=== PATIENT | female | born 1970 | race Caucasian/White ===

== ENCOUNTER 2017-01-24 04:22 | Emergency (ER) | payer SELFPAY ==
[~2017-01-24] VITALS: Ht 172.7 cm; Wt 78.0 kg
[~2017-01-24 04:22] MED LIST: LEVO50TA4 PO
[2017-01-24 04:24] VITALS: BP 126/80; PULSE 106; RESP 16; TEMP 97.8; O2SAT 100
[2017-01-24] MEDS ORDERED: LEVO50TA4 PO (05:20)
[2017-01-24] MEDS ORDERED: PERM5CRE11 TOPICAL (05:20)
[2017-01-24] MEDS ORDERED: methylPREDNISolone SOD SUCC 125 MG/2 ML VIAL IV PUSH ONE (05:30)
[2017-01-24] MEDS ORDERED: diphenhydrAMINE HCL 50 MG/ML VIAL IM ONE (05:30)
[2017-01-24] MEDS ORDERED: FAMOTIDINE 20 MG/2 ML VIAL IV PUSH ONE (05:30)
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
[2017-01-24 05:48] LABS: AUTOMATED NEUTROPHIL # 5.9 TH/MM3 (1.8-7.7); BASOPHIL % 0.3 % (0.0-2.0); EOSINOPHIL # 0.2 TH/MM3 (0-0.4); EOSINOPHIL % 2.1 % (0.0-4.0); HEMO FLAGS DIFF FINAL; LYMPH % 14.3 % (9.0-44.0); LYMPHOCYTE # 1.1 TH/MM3 (1.0-4.8); MEAN CELL VOLUME 59.1 FL (80.0-100.0); MEAN CORPUSCULAR HEMOGLOBIN 17.8 PG (27.0-34.0); MEAN CORPUSCULAR HGB CONC 30.1 % (32.0-36.0); MONO % 7.4 % (0.0-8.0); NEUT % 75.9 % (16.0-70.0); PLATELET COUNT 273 TH/MM3 (150-450); RED CELL DISTRIBUTION WIDTH 19.5 % (11.6-17.2); WHITE BLOOD COUNT 7.7 TH/MM3 (4.0-11.0)
[2017-01-24 06:06] LABS: BICARBONATE 24.3 MEQ/L (21.0-32.0); POTASSIUM 3.5 MEQ/L (3.5-5.1)
[2017-01-24] MEDS ORDERED: BENA25TA6 PO (06:21)
[2017-01-24] MEDS ORDERED: PRED-503 PO (06:21)
== END 2017-01-24 06:31 | disposition home or self-care (01) ==
LOC: NEPE 04:22 → NEPD 06:31
DX: T78.40XA Allergy, unspecified, initial encounter (principal); D64.9 Anemia, unspecified; R21 Rash and other nonspecific skin eruption; L29.9 Pruritus, unspecified; H93.93 Unspecified disorder of ear, bilateral; E03.9 Hypothyroidism, unspecified; X58.XXXA Exposure to other specified factors, initial encounter
CPT/HCPCS: 80048; 85025; 96372; 96374; 96375; 99284; J1200; J2930

== ENCOUNTER 2017-07-04 19:37 | Emergency (ER) | payer BC, OTHER ==
[~2017-07-04] VITALS: Ht 167.6 cm; Wt 90.6 kg
[~2017-07-04 19:37] MED LIST changes: +BENA25TA6 PO; +PERM5CRE11 TOPICAL; +PRED-503 PO
[2017-07-04 19:44] VITALS: BP 127/86; PULSE 92; RESP 18; TEMP 98; O2SAT 99
--- NOTE | 2017-07-04 20:11 | PD ---
HPI Chief Complaint: Pain: Acute or Chronic Time Seen by Provider: 20:02 Travel History International Travel<30 days: No Contact w/Intl Traveler<30days: No Traveled to known affect area: No History of Present Illness HPI 46-year-old female here for evaluation of right shoulder pain. The patient reports that she has had pain in her right shoulder for the last month, worse today. She denies specific trauma or injury to the shoulder. States that the pain is sharp/pressure-like, moderate to severe, worse with movement and palpation, radiates to her right neck. No paresthesias or motor deficits. No fevers. She has taken Tylenol without relief of pain. [facility] Past Medical History Immunizations Current: Yes Thyroid Disease: Yes Tetanus Vaccination: Unknown Influenza Vaccination: No ?: Not LMP: less then 1 mo ago Social History Alcohol Use: Yes Tobacco Use: No Substance Use: No Allergies-Medications (Allergen,Severity, Reaction): Coded Allergies: aspirin (Verified Allergy, Severe, Swelling, 07/04/17) Reported Meds & Prescriptions Reported Meds & Active Scripts Active No Active Prescriptions or Reported Medications Review of Systems Except as stated in HPI: all other systems reviewed are Neg Physical Exam Narrative GENERAL: Well-developed, well-nourished, comfortable, no apparent distress. SKIN: Focused skin assessment warm/dry. No rash. HEAD: Atraumatic. Normocephalic. EYES: Pupils equal and round. No scleral icterus. No injection or drainage. ENT: Mucous membranes pink and moist. NECK: Trachea midline. No JVD. No midline cervical spine step-off or tenderness. Mild to moderate right lateral neck tenderness without swelling, masses, or induration. CARDIOVASCULAR: Regular rate and rhythm. Bilateral distal radial pulses are brisk and equal. RESPIRATORY: No accessory muscle use. Clear to auscultation. Breath sounds equal bilaterally. MUSCULOSKELETAL: Right shoulder without obvious deformity without overlying skin changes, without warmth or erythema, with moderate diffuse tenderness, with normal range of motion, however this causes pain when the patient reaches 90 of abduction. NEUROLOGICAL: Awake and alert. No obvious cranial nerve deficits. Motor grossly within normal limits. Normal speech. Normal sensation in bilateral upper extremities. PSYCHIATRIC: Appropriate mood and affect; insight and judgment normal. Data Data Last Documented VS Vital Signs Date Time Temp Pulse Resp B/P (MAP) Pulse Ox O2 Delivery O2 Flow Rate FiO2 07/04/17 19:44 98.0 92 18 127/86 (100) 99 Orders Orders Shoulder, Complete (>2vws) (07/04/17 ) Ketorolac Inj (Toradol Inj) (07/04/17 20:15) Cyclobenzaprine (Flexeril) (07/04/17 21:00) MDM Medical Decision Making Medical Screen Exam Complete: Yes Emergency Medical Condition: Yes Differential Diagnosis Rotator cuff injury, calcific tendinitis, nerve irritation, arthritis, septic arthritis unlikely Narrative Course Vital signs are within normal limits. Right shoulder x-ray read as normal exam. Patient was made aware of x-ray findings per she is resting comfortably. This is been going on for a month. There are no signs or symptoms of septic arthritis. Plan is to discharge her home with naproxen and muscle relaxant, and have her follow-up with her primary care physician as well as an orthopedist this week. She was advised on when to return to the emergency department. She verbalizes understanding and agreement with plan. Diagnosis Primary Impression: Right shoulder pain Qualified Codes: M25.511 - Pain in right shoulder Referrals: Hilario Ortega MD 3 days Orthopedist Primary Care Physician 3 days Additional Instructions: Follow-up with your primary care physician this week. Follow-up with orthopedist Dr. Ortega or an orthopedist of your choice this week. Return to the emergency department for worsening symptoms or any other concerns. Scripts Naproxen (Naproxen) 500 Mg Tab 500 MG PO BID for 14 Days, #28 TAB 0 Refills Prov: Dave Barry MD 07/04/17 Cyclobenzaprine (Flexeril) 10 Mg Tab 10 MG PO BID for Muscle Spasm, #15 TAB 0 Refills Prov: Dave Barry MD 07/04/17 Disposition: 01 DISCHARGE HOME Condition: Stable Dave Barry MD Jul 04, 2017 20:11
[2017-07-04] MEDS ORDERED: KETOROLAC TROMETHAMINE 60 MG/2 ML (IM) VIAL IM ONE (20:15)
--- NOTE | 2017-07-04 20:38 | RADRPT ---
EXAM DATE/TIME: 07/04/2017 20:10 [facility] COMPARISON: No previous studies available for comparison. INDICATIONS : Right shoulder pain, no known trauma. MEDICAL HISTORY : None. SURGICAL HISTORY : None. ENCOUNTER: Initial ACUITY: 1 month PAIN SCORE: 8/10 LOCATION: Right shoulder FINDINGS: Multiple view examination of the right shoulder demonstrates no evidence of fracture or dislocation. The glenohumeral and acromioclavicular joints are maintained. There is normal range of motion betwe en internal and external rotation. Bony mineralization is normal. CONCLUSION: Normal examination for a patient of this age. Cuco Martinez MD on July 04, 2017 at 20:35 Board Certified Radiologist. This report was verified electronically.
[2017-07-04] MEDS ORDERED: CYCL10TA PO (20:49)
[2017-07-04] MEDS ORDERED: NAPR500T2 PO (20:49)
[2017-07-04] MEDS ORDERED: CYCLOBENZAPRINE HCL 10 MG TAB PO ONE (21:00)
== END 2017-07-04 21:06 | disposition home or self-care (01) ==
LOC: PHEFT 19:37
DX: M25.511 Pain in right shoulder (principal)
CPT/HCPCS: 73030; 96372; 99284; J1885

== ENCOUNTER 2017-08-23 20:39 | Observation (INO) | payer SELFPAY ==
[~2017-08-23] VITALS: Ht 167.6 cm; Wt 93.2 kg
[~2017-08-23 20:39] MED LIST changes: -BENA25TA6 PO; +CYCL10TA PO; -LEVO50TA4 PO; +NAPR500T2 PO; -PERM5CRE11 TOPICAL; -PRED-503 PO
[2017-08-23 21:16] VITALS: BP 135/83; PULSE 88; RESP 20; TEMP 98.2; O2SAT 99
[2017-08-23] MEDS ORDERED: LEVO50TA4 PO (21:20)
[2017-08-23] MEDS ORDERED: SODIUM CHLOR 0.9% 1000 ML INJ 1,000 ML IV SCH (22:04)
--- NOTE | 2017-08-23 22:08 | PD ---
HPI Chief Complaint: Abdominal Pain Time Seen by Provider: 21:58 Travel History International Travel<30 days: No Contact w/Intl Traveler<30days: No Traveled to known affect area: No History of Present Illness HPI The patient is a 47-year-old female that complains of pain in the right lower quadrant since 11 AM today. She has nausea without vomiting. She denies any fever. She had slight loose stools but she states she did not have diarrhea. Her appetite is decreased and her last meal was at 11 AM today. She has never had any abdominal surgeries and still has her appendix and gallbladder. The patient states one week ago when she was on her period she stood up and almost fainted. [facility] Past Medical History Immunizations Current: Yes Thyroid Disease: Yes Tetanus Vaccination: < 5 Years Influenza Vaccination: No ?: Not Social History Alcohol Use: Yes (social ) Tobacco Use: No Substance Use: No Allergies-Medications (Allergen,Severity, Reaction): Coded Allergies: aspirin (Verified Allergy, Severe, Swelling, 08/23/17) Reported Meds & Prescriptions Reported Meds & Active Scripts Active Reported Levothyroxine (Levothyroxine Sodium) 50 Mcg Tab 50 Mcg PO DAILY Review of Systems Except as stated in HPI: all other systems reviewed are Neg Physical Exam Narrative GENERAL: The patient is alert, oriented 3, anemic appearing in moderate apparent distress with her right lower quadrant discomfort. She is slightly obese. Her vital signs are normal. SKIN: Focused skin assessment warm/dry. HEAD: Atraumatic. Normocephalic. EYES: Pupils equal and round. No scleral icterus. No injection or drainage. ENT: No nasal bleeding or discharge. Mucous membranes pink and moist. NECK: Trachea midline. No JVD. CARDIOVASCULAR: Regular rate and rhythm. No murmur appreciated. RESPIRATORY: No accessory muscle use. Clear to auscultation. Breath sounds equal bilaterally. GASTROINTESTINAL: Abdomen soft, with tenderness to direct palpation in the right lower quadrant, nondistended. Hepatic and splenic margins not palpable. No guarding or rebound. Gaines sign is negative. The uterus is palpable and is enlarged. The uterus is tender and the right lower quadrant shows tenderness which may be appendiceal tenderness or over and tenderness. MUSCULOSKELETAL: No obvious deformities. No clubbing. No cyanosis. No edema. NEUROLOGICAL: Awake and alert. No obvious cranial nerve deficits. Motor grossly within normal limits. Normal speech. PSYCHIATRIC: Appropriate mood and affect; insight and judgment normal. Data Data Last Documented VS Vital Signs Date Time Temp Pulse Resp B/P (MAP) Pulse Ox O2 Delivery O2 Flow Rate FiO2 08/23/17 22:37 98.3 95 18 142/84 (103) 100 Room Air Orders Orders Beta Hcg (Quant/Titer) (08/23/17 22:04) Complete Blood Count With Diff (08/23/17 22:04) Comprehensive Metabolic Panel (08/23/17 22:04) Lipase (08/23/17 22:04) Urinalysis - C+S If Indicated (08/23/17 22:04) Ct Abd/Pel W Iv Contrast(Rout) (08/23/17 22:04) Iv Access Insert/Monitor (08/23/17 22:04) Ecg Monitoring (08/23/17 22:04) Oximetry (08/23/17 22:04) Morphine Inj (Morphine Inj) (08/23/17 22:15) Ondansetron Inj (Zofran Inj) (08/23/17 22:15) Sodium Chlor 0.9% 1000 Ml Inj (Ns 1000 M (08/23/17 22:04) Sodium Chloride 0.9% Flush (Ns Flush) (08/23/17 22:15) Iohexol 350 Inj (Omnipaque 350 Inj) (08/23/17 22:20) Labs Laboratory Tests Test 08/23/17 22:10 White Blood Count 8.8 TH/MM3 Red Blood Count 4.12 MIL/MM3 Hemoglobin 7.5 GM/DL Hematocrit 25.0 % Mean Corpuscular Volume 60.5 FL Mean Corpuscular Hemoglobin 18.3 PG Mean Corpuscular Hemoglobin Concent 30.1 % Red Cell Distribution Width 16.4 % Platelet Count 357 TH/MM3 Mean Platelet Volume 7.9 FL Neutrophils (%) (Auto) 81.1 % Lymphocytes (%) (Auto) 12.1 % Monocytes (%) (Auto) 5.3 % Eosinophils (%) (Auto) 1.2 % Basophils (%) (Auto) 0.3 % Neutrophils # (Auto) 7.1 TH/MM3 Lymphocytes # (Auto) 1.1 TH/MM3 Monocytes # (Auto) 0.5 TH/MM3 Eosinophils # (Auto) 0.1 TH/MM3 Basophils # (Auto) 0.0 TH/MM3 CBC Comment AUTO DIFF Differential Comment AUTO DIFF CONFIRMED Platelet Estimate NORMAL Platelet Morphology Comment NORMAL Tear Drop Cells 1+ Ovalocytes 2+ Urine Color YELLOW Urine Turbidity CLEAR Urine pH 5.5 Urine Specific [place] 1.021 Urine Protein NEG mg/dL Urine Glucose (UA) NEG mg/dL Urine Ketones NEG mg/dL Urine Occult Blood NEG Urine Nitrite NEG Urine Bilirubin NEG Urine Leukocyte Esterase NEG Urine WBC 0-2 /hpf Urine Squamous Epithelial Cells 0-5 /hpf Microscopic Urinalysis Comment CULT NOT INDICATED Blood Urea Nitrogen 13 MG/DL Creatinine 0.61 MG/DL Random Glucose 99 MG/DL Total Protein 7.5 GM/DL Albumin 3.4 GM/DL Calcium Level 8.6 MG/DL Alkaline Phosphatase 83 U/L Aspartate Amino Transf (AST/SGOT) 19 U/L Alanine Aminotransferase (ALT/SGPT) 33 U/L Total Bilirubin 0.6 MG/DL Sodium Level 136 MEQ/L Potassium Level 3.9 MEQ/L Chloride Level 103 MEQ/L Carbon Dioxide Level 25.1 MEQ/L Anion Gap 8 MEQ/L Estimat Glomerular Filtration Rate 106 ML/MIN Lipase 146 U/L Human Chorionic Gonadotropin, Quant LESS THAN 1 MIU/ML MDM Medical Decision Making Medical Screen Exam Complete: Yes Emergency Medical Condition: Yes Medical Record Reviewed: Yes Interpretation(s) The CT abdomen/pelvis with IV contrast shows markedly enlarged fibroid uterus, no evidence of acute appendicitis, prominent ovaries with multiple cysts bilaterally and mild hepatosplenomegaly. The CBC shows a hemoglobin of 7.5 and hematocrit of 25 but is otherwise unremarkable. The urinalysis is normal. The complete metabolic profile is normal. The beta-hCG is less than 1 on the lipase is normal. Differential Diagnosis Anemia, electrolyte disorder, acute appendicitis, fibroid uterus, uterine bleeding, colitis Narrative Course The patient has symptomatic anemia. This appears to be from blood loss from uterine bleeding. The uterus is markedly enlarged and appears to be a fibroid uterus. Plan: The patient will be 23 hour observation to the [facility], I discussed the patient with Dr. Oliveira. She will get 2 units of packed cells. Physician Communication Physician Communication I discussed the patient with Dr. Oliveira. The patient will be admitted to her for 23 hour observation. Diagnosis Primary Impression: Symptomatic anemia Additional Impressions: Uterine bleeding, dysfunctional Fibroid uterus Enlarged uterus Admitting Information Admitting Physician Requests: Observation Chico Coles MD Aug 23, 2017 22:08
[2017-08-23] MEDS ORDERED: ONDANSETRON HCL 4 MG/2 ML VIAL IVP ONE (22:15)
[2017-08-23] MEDS ORDERED: SODIUM CHLORIDE 0.9% FLUSH 10 ML FLUSH IV FLUSH PRN (22:15)
[2017-08-23] MEDS ORDERED: MORPHINE SULFATE 4 MG/ML INJ IV PUSH ONE (22:15)
[2017-08-23 22:18] LABS: AUTOMATED NEUTROPHIL # 7.1 TH/MM3 (1.8-7.7); BASOPHIL % 0.3 % (0.0-2.0); EOSINOPHIL # 0.1 TH/MM3 (0-0.4); EOSINOPHIL % 1.2 % (0.0-4.0); HEMOGLOBIN 7.5 GM/DL (11.6-15.3); LYMPH % 12.1 % (9.0-44.0); LYMPHOCYTE # 1.1 TH/MM3 (1.0-4.8); MEAN CELL VOLUME 60.5 FL (80.0-100.0); MEAN CORPUSCULAR HEMOGLOBIN 18.3 PG (27.0-34.0); MEAN CORPUSCULAR HGB CONC 30.1 % (32.0-36.0); MEAN PLATELET VOLUME 7.9 FL (7.0-11.0); MONO % 5.3 % (0.0-8.0); MONOCYTE # 0.5 TH/MM3 (0-0.9); NEUT % 81.1 % (16.0-70.0); PLATELET COUNT 357 TH/MM3 (150-450); RED BLOOD COUNT 4.12 MIL/MM3 (4.00-5.30); RED CELL DISTRIBUTION WIDTH 16.4 % (11.6-17.2); WHITE BLOOD COUNT 8.8 TH/MM3 (4.0-11.0)
[2017-08-23 22:20] LABS: BILIRUBIN, URINE NEG (NEG); BLOOD, URINE NEG (NEG); GLUCOSE,URINE NEG (NEG); KETONE, URINE NEG (NEG); NITRITE,URINE NEG (NEG); PH, URINE 5.5 (5.0-8.5); URINE LEUKOCYTE ESTERASE NEG (NEG)
[2017-08-23] MEDS ORDERED: IOHEXOL 350 MG/ML 10 ML VIAL (for RAD DIAG) IVCONTRAST ONE (22:20)
[2017-08-23 22:25] LABS: SQUAMOUS EPITHELIAL CELL URINE 0-5 /hpf (0-5); URINE COLOR YELLOW (YELLW/STRAW); WBC, URINE 0-2 /hpf (0-5)
[2017-08-23 22:27] LABS: CHLORIDE 103 MEQ/L (98-107); SODIUM (NA) 136 MEQ/L (136-145)
[2017-08-23 22:30] LABS: CALCIUM 8.6 MG/DL (8.5-10.1)
[2017-08-23 22:31] LABS: ALBUMIN 3.4 GM/DL (3.4-5.0); BICARBONATE 25.1 MEQ/L (21.0-32.0); BLOOD UREA NITROGEN 13 MG/DL (7-18); GLUCOSE,RANDOM 99 MG/DL (74-106)
[2017-08-23 22:34] LABS: ALT (GPT) 33 U/L (10-53); AST (GOT) 19 U/L (15-37); CREATININE 0.61 MG/DL (0.50-1.00); GLOMERULAR FILTRATION RATE 106 ML/MIN (>89)
[2017-08-23 22:35] LABS: TOTAL BILIRUBIN ADULT 0.6 MG/DL (0.2-1.0); TOTAL PROTEIN 7.5 GM/DL (6.4-8.2)
[2017-08-23 22:36] VITALS: O2SAT 100
[2017-08-23 22:37] VITALS: BP 142/84; PULSE 95; RESP 18; TEMP 98.3; O2SAT 100
[2017-08-23 22:37] LABS: ALKALINE PHOSPHATASE 83 U/L (45-117)
[2017-08-23 22:38] LABS: OVALOCYTES 2+ (NORMAL); TEARDROP RBCS 1+ (NORMAL)
--- NOTE | 2017-08-23 23:10 | RADRPT ---
EXAM DATE/TIME: 08/23/2017 22:20 [facility] COMPARISON: No previous studies available for comparison. INDICATIONS : Right lower quadrant pain for 6 hours IV CONTRAST: 96 cc Omnipaque 350 (iohexol) IV ORAL CONTRAST: No oral contrast ingested. RADIATION DOSE: 16.72 CTDIvol (mGy) MEDICAL HISTORY : Hypothyroidism. SURGICAL HISTORY : None. ENCOUNTER: Initial ACUITY: 1 day PAIN SCALE: 8/10 LOCATION: Right lower quadrant TECHNIQUE: Volumetric scanning of the abdomen and pelvis was performed. Using automated exposure control and adjustment of the mA and/or kV according to patient size, radiation dose was kept as low as reasonably achievable to obtain optimal diagnostic quality images. DICOM format image data is av ailable electronically for review and comparison. FINDINGS: LOWER LUNGS: The visualized lower lungs are clear. LIVER: Mild hepatomegaly is noted. Homogeneous density without lesion. There is no dilation of t he biliary tree. No calcified gallstones. SPLEEN: Mild splenomegaly is noted. PANCREAS: Within normal limits. KIDNEYS: Normal in size and shape. There is no mass, stone or hydronephrosis. ADRENAL GLANDS: Within normal limits. VASCULAR: There is no aortic aneurysm. BOWEL/MESENTERY: The stomach, small bowel, and colon demonstrate no acute abnormality. There is no free intraperitoneal air or fluid. The appendix is normal. ABDOMINAL WALL: Within normal limits. RETROPERITONEUM: There is no lymphadenopathy. BLADDER: No wall thickening or mass. REPRODUCTIVE: The uterus is markedly enlarged and contains multiple fibroids. The ovaries are mil dly prominent and contain cysts bilaterally. INGUINAL: There is no lymphadenopathy or hernia. MUSCULOSKELETAL: Within normal limits for patient age. CONCLUSION: 1. Markedly enlarged fibroid uterus. 2. No CT evidence of acute appendicitis. 3. Prominent ovaries with multiple cysts bilaterally. 4. Mild hepatosplenomegaly. Claus Johnson MD on August 23, 2017 at 23:04 Board Certified Radiologist. This report was verified electronically.
[2017-08-23 23:30] VITALS: BP 138/88; PULSE 84; RESP 18; TEMP 98.4; O2SAT 100
[2017-08-23] MEDS ORDERED: LACTULOSE SYRUP 20 GM/30 ML CUP PO PRN (23:45)
[2017-08-23] MEDS ORDERED: MAGNESIUM HYDROXIDE SUSP 30 ML CUP PO PRN (23:45)
[2017-08-23] MEDS ORDERED: FUROSEMIDE 20 MG/2 ML VIAL IV PUSH ONE (23:45)
[2017-08-23] MEDS ORDERED: SODIUM CHLOR 0.9% 250 ML INJ 250 ML IV ONE ×2 (23:45)
[2017-08-23] MEDS ORDERED: ONDANSETRON HCL 4 MG/2 ML VIAL IVP PRN (23:45)
[2017-08-23] MEDS ORDERED: NALOXONE HCL 0.4 MG/ML AMP IV PUSH PRN (23:45)
[2017-08-23] MEDS ORDERED: ACETAMINOPHEN 325 MG TAB PO PRN (23:45)
[2017-08-23] MEDS ORDERED: SENNOSIDES 8.6 MG TAB PO PRN (23:45)
[2017-08-23] MEDS ORDERED: BISACODYL 10 MG SUPP RECTAL PRN (23:45)
[2017-08-24] VITALS (7 sets, daily range): BP systolic 107–129; BP diastolic 70–88; PULSE 79–90; RESP 14–20; TEMP 97.7–98.7; O2SAT 94–98
[2017-08-24] MEDS ORDERED: HYDROmorphone HCL PF 2 MG/ML VIAL IV PUSH ONE (02:00)
[2017-08-24] MEDS: SODIUM CHLORIDE 0.9% FLUSH 10 ML FLUSH IV FLUSH PRN ×2 (02:08→06:12)
[2017-08-24] MEDS ORDERED: ACETAMINOPHEN/HYDROcodone 325 MG/5 MG TAB PO PRN (08:45)
[2017-08-24] MEDS ORDERED: DOCUSATE SODIUM 50 MG/SENNA 8.6 MG TAB PO SCH (09:00)
[2017-08-24] MEDS ORDERED: PNEUMOCOCCAL POLYVALENT INJ 25 MCG/0.5 ML SYR IM ONE (09:00)
[2017-08-24] MEDS ORDERED: INFLUENZA VIRUS VACCINE (QUADRIVALENT) 0.5 ML SYR IM ONE (09:00)
[2017-08-24] MEDS ORDERED: SODIUM CHLORIDE 0.9% FLUSH 10 ML FLUSH IV FLUSH SCH (09:00)
[2017-08-24 10:13] LABS: AUTOMATED NEUTROPHIL # 6.4 TH/MM3 (1.8-7.7); BASOPHIL % 0.3 % (0.0-2.0); EOSINOPHIL # 0.1 TH/MM3 (0-0.4); EOSINOPHIL % 0.9 % (0.0-4.0); HEMOGLOBIN 9.1 GM/DL (11.6-15.3); LYMPH % 8.5 % (9.0-44.0); LYMPHOCYTE # 0.7 TH/MM3 (1.0-4.8); MEAN CELL VOLUME 65.6 FL (80.0-100.0); MEAN CORPUSCULAR HEMOGLOBIN 21.3 PG (27.0-34.0); MEAN CORPUSCULAR HGB CONC 32.5 % (32.0-36.0); MEAN PLATELET VOLUME 7.7 FL (7.0-11.0); MONO % 7.1 % (0.0-8.0); MONOCYTE # 0.6 TH/MM3 (0-0.9); NEUT % 83.2 % (16.0-70.0); PLATELET COUNT 304 TH/MM3 (150-450); RED BLOOD COUNT 4.26 MIL/MM3 (4.00-5.30); WHITE BLOOD COUNT 7.8 TH/MM3 (4.0-11.0)
[2017-08-24 10:18] LABS: CHLORIDE 102 MEQ/L (98-107); SODIUM (NA) 136 MEQ/L (136-145)
[2017-08-24 10:20] LABS: RETIC # 105.6 MIL/L (20.0-150.0); RETIC % 2.7 % (0.4-3.0)
[2017-08-24 10:23] LABS: ALBUMIN 3.2 GM/DL (3.4-5.0); BICARBONATE 26.7 MEQ/L (21.0-32.0); BLOOD UREA NITROGEN 11 MG/DL (7-18); CALCIUM 8.1 MG/DL (8.5-10.1); GLUCOSE,RANDOM 102 MG/DL (74-106)
[2017-08-24 10:26] LABS: ALT (GPT) 30 U/L (10-53); AST (GOT) 17 U/L (15-37); CREATININE 0.62 MG/DL (0.50-1.00); GLOMERULAR FILTRATION RATE 104 ML/MIN (>89)
[2017-08-24 10:28] LABS: TOTAL BILIRUBIN ADULT 1.7 MG/DL (0.2-1.0); TOTAL PROTEIN 7.1 GM/DL (6.4-8.2)
[2017-08-24 10:29] LABS: ALKALINE PHOSPHATASE 80 U/L (45-117)
[2017-08-24 10:37] LABS: % SATURATION IRON PROFILE 2.5 % (20-50); IRON (FE) 15 MCG/DL (50-170); TOTAL IRON BINDING CAPACITY 612 MCG/DL (250-450)
[2017-08-24] MEDS ORDERED: HYDR-3516 PO (10:53)
[2017-08-24] MEDS ORDERED: FERR325T18 PO (10:53)
--- NOTE | 2017-08-24 10:54 | HHI.DCPOC ---
Discharge Care Plan Diagnosis: (1) Symptomatic anemia (2) Fibroid uterus Goals to Promote Your Health * To prevent worsening of your condition and complications * To maintain your health at the optimal level Directions to Meet Your Goals Take your medications as prescribed Follow your dietary instruction Follow activity as directed Keep your appointments as scheduled Take your immunizations and boosters as scheduled If your symptoms worsen call your PCP, if no PCP go to Urgent Care Center or Emergency Room Smoking is Dangerous to Your Health. Avoid second hand smoke Call the 24-hour hour crisis hotline for domestic abuse at [facility] Coles Aug 24, 2017 10:54
[2017-08-24 10:58] LABS: OVALOCYTES 1+ (NORMAL)
[2017-08-24] MEDS ORDERED: FERROUS SULFATE 325 MG (65 MG ELEMENTAL IRON) TAB PO SCH (11:00)
[2017-08-24 11:02] LABS: FERRITIN 2 NG/ML (8-252)
[2017-08-24 11:04] LABS: FOLATE GREATER THAN 20.0 NG/ML (3.1-17.5)
--- NOTE | 2017-08-24 11:37 | HHI.HP ---
[facility] Deric Saravia M.D. Admission Diagnosis symptomatic anemia, fibroid uterus, dysfunctional uterine bleeding, Diagnoses: (1) Symptomatic anemia Diagnosis: Principal (2) Fibroid uterus Diagnosis: Principal (3) Iron deficiency anemia Diagnosis: Principal Chief Complaint: Abdominal pain Travel History International Travel<30 Days: No Contact w/Intl Traveler <30 Da: No Traveled to Known Affected Are: No History of Present Illness 47-year-old female with known history of hypothyroidism, iron deficient anemia who presented to hospital because of acute onset of lower abdominal/pelvic pain. Patient states that she is in normal state of health until yesterday morning approximately 11 AM, prior to that she went to [facility] and had a poor exam which. She started developing pain and took Anel-Murphys, Pepto-Bismol without any improvement. The pain progressively got worse or she came to the emergency department for evaluation. Patient has CT scan done which did show significant fibroid uterus. Further laboratory studies also indicated hemoglobin of 7.5. Patient does have history of chronic iron deficient anemia in which she takes her replacement on and off and is not consistent with her medication. He does indicate that she does have rather difficult menses that last for chronic benign days at a time with very heavy bleeding. Her primary medical doctor started her on control pills in order to help, however it has not helped much. She states that during her masses she usually gets lightheaded, dizzy and short of breath. ER physician recommended the patient be observed in the hospital with blood transfusion. Review of Systems Constitutional: COMPLAINS OF: Dizziness Respiratory: COMPLAINS OF: Shortness of breath Gastrointestinal: COMPLAINS OF: Abdominal pain Except as stated in HPI: all other systems reviewed are Neg Past Family Social History Past Medical History Hypothyroidism Iron deficient anemia Past Surgical History Left Achilles tendon rupture repair Reported Medications Reported Meds & Active Scripts Active Hydrocodone-Acetamin 5-325 mg (Hydrocodone/Acetaminophen) 5 Mg-325 Mg Tablet 1 Tab PO Q6H PRN Ferrous Sulfate 325 Mg (65 Mg Iron) Tablet 325 Mg PO BIDPC Reported Levothyroxine (Levothyroxine Sodium) 50 Mcg Tab 50 Mcg PO DAILY Allergies: Coded Allergies: aspirin (Verified Allergy, Severe, Swelling, 08/23/17) Family History Reviewed is significant for mother alive at age 65 with diabetes and heart disease. Father at age 37 from kidney failure Social History Patient denies any tobacco, alcohol or illicit drugs Physical Exam Vital Signs Vital Signs Date Time Temp Pulse Resp B/P (MAP) Pulse Ox O2 Delivery O2 Flow Rate FiO2 08/24/17 10:08 16 08/24/17 05:45 97.7 79 16 116/88 98 08/24/17 03:22 98.1 86 20 107/72 (84) 97 08/24/17 03:22 98.1 86 20 107/72 97 08/24/17 03:07 98.7 90 20 122/82 (95) 94 08/24/17 03:07 98.7 90 20 122/82 94 08/24/17 01:15 98.2 79 20 129/82 (98) 97 08/24/17 01:03 98.2 87 18 128/70 (89) 100 08/23/17 23:30 98.4 84 18 138/88 (105) 100 Room Air 08/23/17 22:37 98.3 95 18 142/84 (103) 100 Room Air 08/23/17 22:36 100 Room Air 08/23/17 21:16 98.2 88 20 135/83 (100) 99 Physical Exam GENERAL: Well-developed, well-nourished, in no acute distress. alert and orientated HEENT: Head is normocephalic without any lesions or masses noted. Facial features are symmetric. Eyes: Pupils equal round reactive to light. Extraocular muscles are intact. Conjunctivae were clear. Oropharyngeal: Pharynx without any erythema edema. Tongue is midline without deviation. Buccal mucosa is moist without any masses or lesions NECK: Supple without any masses. Trachea midline no deviation. No JVD, no bruits are appreciated CARDIAC: Regular rhythm, regular rate. S1/S2 are heard. No murmurs gallops or rubs. LUNGS: Clear to auscultation bilaterally. No wheeze, rhonchi or rales. No use of accessory muscles on inspiration or expiration. ABDOMEN: Soft, bilateral lower abdominal pain on palpation. Nondistended. Bowel sounds heard in all 4 quadrants. No organomegaly or masses. Negative rebound, negative guarding EXTREMITIES: No edema, pulses are equal bilaterally. No cyanosis or clubbing NEUROLOGY: Mood and affect appear appropriate. Cranial nerves II through XII grossly intact. Muscle strength 5/5 in upper and lower extremities bilaterally. Deep tendon reflexes are 2+ in upper and lower extremities bilaterally. Laboratory Laboratory Tests Test 08/23/17 22:10 08/24/17 09:40 White Blood Count 8.8 7.8 Red Blood Count 4.12 4.26 Hemoglobin 7.5 9.1 Hematocrit 25.0 28.0 Mean Corpuscular Volume 60.5 65.6 Mean Corpuscular Hemoglobin 18.3 21.3 Mean Corpuscular Hemoglobin Concent 30.1 32.5 Red Cell Distribution Width 16.4 23.0 Platelet Count 357 304 Mean Platelet Volume 7.9 7.7 Neutrophils (%) (Auto) 81.1 83.2 Lymphocytes (%) (Auto) 12.1 8.5 Monocytes (%) (Auto) 5.3 7.1 Eosinophils (%) (Auto) 1.2 0.9 Basophils (%) (Auto) 0.3 0.3 Neutrophils # (Auto) 7.1 6.4 Lymphocytes # (Auto) 1.1 0.7 Monocytes # (Auto) 0.5 0.6 Eosinophils # (Auto) 0.1 0.1 Basophils # (Auto) 0.0 0.0 CBC Comment AUTO DIFF AUTO DIFF Differential Comment AUTO DIFF CONFIRMED AUTO DIFF CONFIRMED Platelet Estimate NORMAL NORMAL Platelet Morphology Comment NORMAL NORMAL Tear Drop Cells 1+ Ovalocytes 2+ 1+ Reticulocyte Count 2.7 Absolute Reticulocyte Count 105.6 Urine Color YELLOW Urine Turbidity CLEAR Urine pH 5.5 Urine Specific [place] 1.021 Urine Protein NEG Urine Glucose (UA) NEG Urine Ketones NEG Urine Occult Blood NEG Urine Nitrite NEG Urine Bilirubin NEG Urine Leukocyte Esterase NEG Urine WBC 0-2 Urine Squamous Epithelial Cells 0-5 Microscopic Urinalysis Comment CULT NOT INDICATED Blood Urea Nitrogen 13 11 Creatinine 0.61 0.62 Random Glucose 99 102 Total Protein 7.5 7.1 Albumin 3.4 3.2 Calcium Level 8.6 8.1 Alkaline Phosphatase 83 80 Aspartate Amino Transf (AST/SGOT) 19 17 Alanine Aminotransferase (ALT/SGPT) 33 30 Total Bilirubin 0.6 1.7 Sodium Level 136 136 Potassium Level 3.9 3.5 Chloride Level 103 102 Carbon Dioxide Level 25.1 26.7 Anion Gap 8 7 Estimat Glomerular Filtration Rate 106 104 Iron Level 15 Total Iron Binding Capacity 612 Percent Iron Saturation 2.5 Ferritin 2 Lactate Dehydrogenase 196 Lipase 146 Vitamin B12 Level 338 Folate GREATER THAN 20.0 Human Chorionic Gonadotropin, Quant LESS THAN 1 Result Diagram: 08/24/17 0940 08/24/17 0940 Imaging Last Impressions Abdomen/Pelvis CT 08/23/174 Signed Impressions: Service Date/Time: August 22:20 - CONCLUSION: 1. Markedly enlarged fibroid uterus. 2. No CT evidence of acute appendicitis. 3. Prominent ovaries with multiple cysts bilaterally. 4. Mild hepatosplenomegaly. MD Tremaine Israel VTE Risk Assessment Evaristorinchata VTE Risk Assessment: No/Low Risk (score <= 1) Caprini Risk Assessment Model Point Value = 1 Point Value = 2 Point Value = 3 Point Value = 5 Age 41-60 Minor surgery BMI > 25 kg/m2 Swollen legs Varicose veins or History of unexplained or recurrent spontaneous Oral contraceptives or hormone replacement Sepsis (< 1 month) Serious lung disease, including pneumonia (< 1 month) Abnormal pulmonary function Acute myocardial infarction Congestive heart failure (< 1 month) History of inflammatory bowel disease Medical patient at bed rest Age 61-74 Arthroscopic surgery Major open surgery (> 45 min) Laparoscopic surgery (> 45 min) Malignancy Confined to bed (> 72 hours) Immobilizing plaster cast Central venous access Age >= 75 History of VTE Family history of VTE Factor V Leiden Prothrombin [id number] Lupus anticoagulant Anticardiolipin antibodies Elevated serum homocysteine Heparin-induced thrombocytopenia Other congenital or acquired thrombophilia Stroke (< 1 month) Elective arthroplasty Hip, pelvis, or leg fracture Acute spinal cord injury (< 1 month) Prophylaxis Regimen Total Risk Factor Score Risk Level Prophylaxis Regimen 0-1 Low Early ambulation 2 Moderate Order ONE of the following: *Sequential Compression Device (SCD) *Heparin 5000 units SQ BID 3-4 Higher Order ONE of the following medications: *Heparin 5000 units SQ TID *Enoxaparin/Lovenox 40 mg SQ daily (WT < 150 kg, CrCl > 30 mL/min) *Enoxaparin/Lovenox 30 mg SQ daily (WT < 150 kg, CrCl > 10-29 mL/min) *Enoxaparin/Lovenox 30 mg SQ BID (WT < 150 kg, CrCl > 30 mL/min) AND/OR *Sequential Compression Device (SCD) 5 or more Highest Order ONE of the following medications: *Heparin 5000 units SQ TID (Preferred with Epidurals) *Enoxaparin/Lovenox 40 mg SQ daily (WT < 150 kg, CrCl > 30 mL/min) *Enoxaparin/Lovenox 30 mg SQ daily (WT < 150 kg, CrCl > 10-29 mL/min) *Enoxaparin/Lovenox 30 mg SQ BID (WT < 150 kg, CrCl > 30 mL/min) AND *Sequential Compression Device (SCD) Assessment and Plan Assessment and Plan Symptomatic anemia Patient does have chronic iron deficient anemia and is noncompliant with replacement treatment Status post transfusion 2 units red blood cells Hemoglobin improved at 9.1 Anemia studies do indicate severe iron deficient anemia with iron 15, ferritin 2 Will start ferrous sulfate 325 mg twice daily Abdominal pain with CT finding of markedly enlarged fibroid uterus Discussed with the patient need to have outpatient follow-up with [facility] [employer] [facility] [employer] physician for definitive treatment of hysterectomy Pain control Hypothyroidism Continue replacement therapy DVT prevention Low risk, early ambulation Discharge disposition Discharge home in stable condition Activity: Ad yolanda. Diet: Regular diet Medications per medication reconciliation Follow-up with primary medical doctor in one week Problem Qualifiers (1) Fibroid uterus: Qualified Codes: D25.9 - Leiomyoma of uterus, unspecified Wesley Coles Aug 24, 2017 11:37
== END 2017-08-24 12:59 | disposition home or self-care (01) ==
LOC: PHED 20:39 → PHEDA 23:49 → PH3B 08-24 01:06
PROVIDERS: ADMIT Hospitalist; ATTEND Hospitalist
DX: D50.9 Iron deficiency anemia, unspecified (principal); D25.9 Leiomyoma of uterus, unspecified; N93.9 Abnormal uterine and vaginal bleeding, unspecified; E03.9 Hypothyroidism, unspecified; R42 Dizziness and giddiness; R06.02 Shortness of breath; Z91.19 Patient's noncompliance with other medical treatment and regimen; R11.0 Nausea; R16.2 Hepatomegaly with splenomegaly, not elsewhere classified; Z23 Encounter for immunization
CPT/HCPCS: 36430; 74177; 80053; 81001; 82607; 82728; 82746; 83010; 83540; 83550; 83615; 83690; 84702; 85025; 85044; 86850; 86900; 86901; 86920; 90471; 90686; 90732; 96361; 96374; 96375; 99285; G0378; J1170; J1940; J2270; J2405; J7030; J7050; P9016; Q9967; G0008; G0009; Q2038